=== PATIENT | female | born 1990 | race American Indian/Alaskan Native ===

== ENCOUNTER 2016-05-04 10:29 | Emergency (ER) | payer MEDICAID ==
[2016-05-04 10:51] VITALS: BMI 26.6
[2016-05-04] MEDS ORDERED: cefTRIAXone (Rocephin) 250 mg Inj IM STA (11:37)
--- NOTE | 2016-05-04 11:40 | C.PDOC ---
History Of Present Illness 25 y/o female presents for std evaluation; pt reports light amt white vaginal discharge with funny smell. pt's partner was treated for sti several days ago. pt denies dyspareunia, dysuria, frequency and urgency. denies abdominal pain., n/v. lmp 04/11. Time Seen by Provider: 05/04/16 10:59 Chief Complaint (Nursing): Medical Clearance History Per: Patient History/Exam Limitations: no limitations Past Medical History Reviewed: Historical Data, Nursing Documentation, Vital Signs Vital Signs: Last Vital Signs Temp 97.7 F 05/04/16 10:50 Pulse 75 05/04/16 10:50 Resp 20 05/04/16 10:50 BP 120/70 05/04/16 10:50 Pulse Ox 100 05/04/16 11:43 - Medical History PMH: Gastritis Surgical History: Family History: States: Unknown Family Hx - Social History Hx Alcohol Use: Yes Hx Substance Use: No - Immunization History Hx Tetanus Toxoid Vaccination: No Hx Influenza Vaccination: No Hx Pneumococcal Vaccination: No Review Of Systems Constitutional: Negative for: Fever, Chills Gastrointestinal: Negative for: Nausea, Vomiting, Abdominal Pain Genitourinary: Positive for: Vaginal Discharge. Negative for: Dysuria, Frequency, Incontinence, Pelvic Pain Physical Exam - Physical Exam Appears: Non-toxic, No Acute Distress Skin: Normal Color, Warm, Dry Head: Atraumatic, Normacephalic Neck: Normal ROM Chest: Symmetrical, No Deformity, No Tenderness Cardiovascular: Rhythm Regular, No Murmur Respiratory: Normal Breath Sounds, No Rales, No Rhonchi, No Wheezing Gastrointestinal/Abdominal: Bowel Sounds, Soft, No Tenderness Back: No CVA Tenderness Neurological/Psych: Oriented x3, Normal Speech, Normal Cognition, Normal Motor, Normal Sensation ED Course And Treatment O2 Sat by Pulse Oximetry: 100 Medical Decision Making Medical Decision Makin25 y/o female for sti check; partner treated 2 days ago for sti. will treat pt and pt advised for herself and partner to fully checked for sti before engaging in unprotected sexual relations. Disposition Counseled Patient/Family Regarding: Diagnosis, Need For Followup - Disposition Disposition: HOME/ ROUTINE Disposition Time: 12:34 Condition: GOOD Additional Instructions: Follow up in STD clinic for full STD testing, both yourself and partner. Recommend protected sex until all testing done. - Clinical Impression Clinical Impression: Exposure to sexually transmitted disease (STD)
[2016-05-04] MEDS: cefTRIAXone 250 MG in Lidocaine Hydrochloride 1 ML IM ONE ×2 (12:05→12:25)
[2016-05-04 13:32] VITALS: BP 111/57; PULSE 58; RESP 16; TEMP 98.4; O2SAT 97
== END 2016-05-04 12:45 | disposition home or self-care (01) ==
LOC: C.ER 10:29
DX: Z20.2 Contact with and (suspected) exposure to infections with a predominantly sexual mode of transmission (principal)

== ENCOUNTER 2017-01-02 14:07 | Emergency (ER) | payer MEDICAID ==
[2017-01-02 14:07] VITALS: BMI 26.6
[2017-01-02 14:38] VITALS: RESP 20; TEMP 97.8
--- NOTE | 2017-01-02 15:14 | C.PDOC ---
History Of Present Illness 26 year old female presents to the ER with a complaint of a mildly painful abscess to the right groin for the past 2 days that popped today. Denies fever. Time Seen by Provider: 01/02/17 14:37 Chief Complaint (Nursing): Abnormal Skin Integrity History Per: Patient History/Exam Limitations: no limitations Onset/Duration Of Symptoms: Days Current Symptoms Are (Timing): Still Present Quality Of Symptoms: Painful Recent travel outside of the [place]: No Past Medical History Reviewed: Historical Data, Nursing Documentation, Vital Signs Vital Signs: Last Vital Signs Temp 97.8 F 01/02/17 14:36 Pulse 75 01/02/17 15:32 Resp 20 01/02/17 15:32 BP 100/68 01/02/17 15:32 Pulse Ox 98 01/02/17 15:32 - Medical History PMH: Gastritis Surgical History: Family History: States: Unknown Family Hx - Social History Hx Alcohol Use: Yes Hx Substance Use: No - Immunization History Hx Tetanus Toxoid Vaccination: No Hx Influenza Vaccination: No Hx Pneumococcal Vaccination: No Review Of Systems Except As Marked, All Systems Reviewed And Found Negative. Skin: Positive for: Other (Abscess to right groin) Physical Exam - Physical Exam Appears: Non-toxic, No Acute Distress Skin: Warm, Dry Head: Atraumatic, Normacephalic Oral Mucosa: Moist Chest: Symmetrical, No Tenderness Cardiovascular: Rhythm Regular Respiratory: Normal Breath Sounds, No Rales, No Rhonchi, No Wheezing Pelvic: Other (Small pustule, mildly tender, to right inguinal area next to labia, mild fluctuance. No erythema or vesicular lesions.) Neurological/Psych: Oriented x3, Normal Speech, Normal Cognition ED Course And Treatment O2 Sat by Pulse Oximetry: 100 (Room air) Pulse Ox Interpretation: Normal Progress Note: Motrin administered. Patient instructed to apply warm compress and started on clindamycin. Disposition Counseled Patient/Family Regarding: Diagnosis, Need For Followup, Rx Given - Disposition Referrals: at [facility] [Outside] Disposition: HOME/ ROUTINE Disposition Time: 15:20 Condition: STABLE Additional Instructions: APPLY WARM COMPRESSES TO AREA SEVERAL TIMES DAILY USE ANTIBIOTICS UNTIL FINISHED RETURN TO ER IF SYMPTOMS WORSEN Prescriptions: Clindamycin [Cleocin] 300 mg PO TID #21 cap Ibuprofen [Motrin Tab] 600 mg PO Q6 PRN #30 tab PRN Reason: fever/pain Lactobacillus Combination No.4 [Probiotic] 1 each PO DAILY #7 capsule Instructions: Abscess (ED) Forms: [employer] (Polish) Print Language: UZBEK - POA Present On Arrival: None - Clinical Impression Clinical Impression: Furuncle - Scribe Statement The provider has reviewed the documentation as recorded by the Scribe Dino Donato All medical record entries made by the Scribe were at my direction and personally dictated by me. I have reviewed the chart and agree that the record accurately reflects my personal performance of the history, physical exam, medical decision making, and the department course for this patient. I have also personally directed, reviewed, and agree with the discharge instructions and disposition.
[2017-01-02 15:32] VITALS: BP 100/68; PULSE 75
[2017-01-02 17:13] VITALS: O2SAT 100
== END 2017-01-02 15:33 | disposition home or self-care (01) ==
LOC: C.ER 14:07
DX: L02.224 Furuncle of groin (principal)

== ENCOUNTER 2017-05-28 18:36 | Emergency (ER) | payer MEDICAID ==
[2017-05-28 18:36] VITALS: BMI 26.6
[2017-05-28 19:21] VITALS: RESP 18; TEMP 98.5; O2SAT 100
[2017-05-28] MEDS ORDERED: Sodium Chloride 0.9% 1,000 ML IV ONE (20:07)
--- NOTE | 2017-05-28 20:07 | C.PDOC ---
History Of Present Illness 26 year old female presents to the ED c/o suprapubic pain associated with vaginal bleeding. Patient reports she was seen yesterday at [facility] [place] and her hcG was 700. Patient not reports she is having increased suprapubic pain along with some vaginal spotting. Patient has 2 kids at home, 3 abortions and 1 miscarriage. Patient denies fever, chills, cough, nausea, vomit. Time Seen by Provider: 05/28/17 20:06 Chief Complaint (Nursing): Female Genitourinary History Per: Patient History/Exam Limitations: no limitations Onset/Duration Of Symptoms: Days Current Symptoms Are (Timing): Still Present Quality Of Discomfort: "Pain" Associated Symptoms: Urinary Symptoms Alleviating Factors: None Recent travel outside of the [place]: No Abnormal Vaginal Bleeding: Yes Past Medical History Reviewed: Historical Data, Nursing Documentation, Vital Signs Vital Signs: Last Vital Signs Temp 98.5 F 05/28/17 19:17 Pulse 83 05/28/17 20:33 Resp 18 05/28/17 20:33 BP 124/70 05/28/17 20:33 Pulse Ox 100 05/28/17 20:33 - Medical History PMH: Gastritis Surgical History: Family History: States: Unknown Family Hx - Social History Hx Alcohol Use: Yes Hx Substance Use: No - Immunization History Hx Tetanus Toxoid Vaccination: No Hx Influenza Vaccination: No Hx Pneumococcal Vaccination: No Review Of Systems Constitutional: Negative for: Fever, Chills Respiratory: Negative for: Shortness of Breath Gastrointestinal: Positive for: Abdominal Pain Genitourinary: Positive for: Vaginal Bleeding. Negative for: Dysuria, Hematuria , Vaginal Discharge Musculoskeletal: Negative for: Back Pain Skin: Negative for: Rash Physical Exam - Physical Exam Appears: Non-toxic, No Acute Distress Skin: Warm, Dry Head: Normacephalic Eye(s): bilateral: Normal Inspection Nose: No Discharge Oral Mucosa: Moist Neck: Supple Chest: Symmetrical Cardiovascular: Rhythm Regular, No Murmur Respiratory: No Rales, No Rhonchi, No Wheezing Gastrointestinal/Abdominal: Soft, Tenderness (suprapubic), No Guarding, No Rebound Extremity: Normal ROM, No Tenderness, No Swelling Neurological/Psych: Oriented x3 Gait: Steady ED Course And Treatment - Laboratory Results Result Diagrams: 05/28/17 20:17 05/28/17 20:17 O2 Sat by Pulse Oximetry: 100 (ON RA) Pulse Ox Interpretation: Normal Progress Note: Plan: - Labs. - Morphine 4 mg IVP. - Pepcid 20 mg IVP. - IV fluids. - Zofran 4 mg IVP. - UA. - Transvaginal US Reevaluation Time: 22:47 Reassessment Condition: Improved Disposition Counseled Patient/Family Regarding: Studies Performed, Diagnosis, Need For Followup - Disposition Referrals: [facility] [Outside] [facility] [Outside] Disposition: HOME/ ROUTINE Disposition Time: 20:07 Condition: FAIR Additional Instructions: Please return if symptoms recur Prescriptions: traMADol [Ultram] 50 mg PO TID PRN #15 tab PRN Reason: Pain, Severe (8-10) Instructions: Miscarriage (DC) Forms: [employer] (Danish) - Clinical Impression Clinical Impression: Miscarriage - Scribe Statement The provider has reviewed the documentation as recorded by the Scribe Ramakrishna Driscoll All medical record entries made by the Scribe were at my direction and personally dictated by me. I have reviewed the chart and agree that the record accurately reflects my personal performance of the history, physical exam, medical decision making, and the department course for this patient. I have also personally directed, reviewed, and agree with the discharge instructions and disposition.
[2017-05-28] MEDS ORDERED: Morphine 4 MG/ML VIAL ONE ×2 (20:14→22:35)
[2017-05-28] MEDS ORDERED: Sodium Chloride 0.9% 1,000 ML ONE (20:14)
[2017-05-28 20:23] LABS: BASO # 0.1 K/uL (0.0-0.2); BASO % 0.8 % (0.0-2.0); EOS # 0.2 K/uL (0.0-0.7); EOS % 1.9 % (0.0-4.0); HEMOGLOBIN 11.2 g/dL (11.0-16.0); LYMPH # 2.8 K/uL (1.0-4.3); LYMPH % 36.3 % (20.0-40.0); MEAN CELL VOLUME 83.8 fL (81.0-99.0); MEAN CORPUSCULAR HEMOGLOBIN 27.1 pg (27.0-31.0); MEAN CORPUSCULAR HGB CONC 32.4 g/dL (33.0-37.0); MEAN PLATELET VOLUME 7.9 fL (7.2-11.7); MONO # 0.7 K/uL (0.0-0.8); MONO % 9.1 % (0.0-10.0); NEUT % 51.9 % (50.0-75.0); NRBC % 0.1 % (0.0-2.0); RBC 4.14 Mil/uL (3.80-5.20); RED CELL DISTRIBUTION WIDTH 13.2 % (11.5-14.5); WHITE BLOOD COUNT 7.8 K/uL (4.8-10.8)
[2017-05-28 20:34] VITALS: BP 124/70; PULSE 83
[2017-05-28 20:40] LABS: SQUAMOUS EPITHIAL 1 /hpf (0-5); URINE BILIRUBIN NEGATIVE (NEGATIVE); URINE BLOOD 3+ (NEGATIVE); URINE CLARITY Clear (Clear); URINE COLOR Yellow (YELLOW); URINE GLUCOSE (UA) NORMAL (Normal); URINE LEUKOCYTE ESTERASE NEG Leu/uL (Negative); URINE PROTEIN NEGATIVE (NEGATIVE)
[2017-05-28 20:41] LABS: ALBUMIN 3.7 g/dL (3.5-5.0); CALCIUM 8.6 mg/dl (8.6-10.4); GFR AFRICAN-AMERICAN > 60; GFR NON-AFRICAN AMERICAN > 60
[2017-05-28 20:44] LABS: ALT/SGPT 10 U/L (9-52); AST/SGOT 35 U/L (14-36); BLOOD UREA NITROGEN 14 mg/dL (7-17)
--- NOTE | 2017-05-29 00:02 | US ---
HISTORY: vag bleed, pain, 6 weeks preg hcg 750 COMPARISON: None available. TECHNIQUE: Transabdominal and endovaginal ultrasound examination of the pelvis FINDINGS: UTERUS: Measures 10.7 x 6.1 x 6.7 cm. Normal in size and appearance. No fibroid or other mass lesion seen. ENDOMETRIUM: Measures 6 mm in diameter. Unremarkable. CERVIX: No cervical abnormality identified. The cervix measures 3.8 centimeter RIGHT OVARY: Measures 3.3 x 1.9 x 3.1 cm. No solid mass. Normal flow. LEFT OVARY: Measures 2.7 x 2.2 x 2.13 cm. No solid mass. Normal flow. FREE FLUID: No significant free fluid noted. OTHER FINDINGS: None. IMPRESSION: No evidence of intrauterine . No definite ultrasound evidence of ectopic . No ultrasound evidence of acute pathology in the ovaries. Correlation with beta HCG level and follow-up study if clinically warranted.
== END 2017-05-28 23:31 | disposition home or self-care (01) ==
LOC: SUPCPDRO 18:36 → C.ER 18:36
DX: O03.9 Complete or unspecified spontaneous abortion without complication (principal)
CPT/HCPCS: 76830; 80053; 81001; 84702; 85025; 86850; 86900; 96361; 96374; 96375; 96376; 99284; J2270; J2405; J7040

== ENCOUNTER 2017-08-16 17:02 | Emergency (ER) | payer MEDICAID ==
[2017-08-16 17:02] VITALS: BMI 26.6
[2017-08-16 17:10] VITALS: BP 119/69; PULSE 77; RESP 17; TEMP 98.8; O2SAT 99
--- NOTE | 2017-08-16 17:28 | C.PDOC ---
History Of Present Illness Patient presents to ED c/o swollen upper lip since this morning. Patient admits to shellfish allergy, did not eat anything unusual today, but did eat steak yesterday from restaurant. She denies tongue swelling, sensation of throat closing up, rash, itching, SOB, wheezing. Patient took two tabs of Benadryl at approx 12:40pm. Time Seen by Provider: 08/16/17 17:13 Chief Complaint (Nursing): Allergic Reaction History Per: Patient History/Exam Limitations: no limitations Onset/Duration Of Symptoms: Hrs Current Symptoms Are (Timing): Still Present Home/EMS Treatment: Benadryl (2 tabs) Severity: Moderate Past Medical History Reviewed: Historical Data, Nursing Documentation, Vital Signs Vital Signs: Last Vital Signs Temp 98.8 F 08/16/17 17:06 Pulse 77 08/16/17 17:06 Resp 17 08/16/17 17:06 BP 119/69 08/16/17 17:06 Pulse Ox 99 08/16/17 18:25 - Medical History PMH: Gastritis Surgical History: Family History: States: No Known Family Hx Other Family History: denies history of angioedema in family - Social History Hx Alcohol Use: Yes Hx Substance Use: No - Immunization History Hx Tetanus Toxoid Vaccination: No Hx Influenza Vaccination: No Hx Pneumococcal Vaccination: No Review Of Systems Constitutional: Negative for: Fever, Chills ENT: Positive for: Mouth Swelling, Other (upper lip swelling ). Negative for: Nose Discharge, Nose Congestion, Throat Swelling Cardiovascular: Negative for: Chest Pain Respiratory: Negative for: Cough, Shortness of Breath Skin: Negative for: Rash Physical Exam - Physical Exam Appears: Well, Non-toxic, No Acute Distress, Other (speaking in full sentences) Skin: Warm, Dry, Other (upper lip mildly swollen, no fluctuance/induration, no lesions) Nose: Normal Oral Mucosa: Moist, No Drooling Tongue: Normal Appearing, No Swelling, No Lesions Lips: Normal Appearing, Swelling (mild, upper lip), No Lesions Throat: Normal, No Erythema, No Exudate, No Drooling Cardiovascular: Rhythm Regular Respiratory: Normal Breath Sounds, No Rales, No Rhonchi, No Wheezing Neurological/Psych: Oriented x3 ED Course And Treatment O2 Sat by Pulse Oximetry: 99 (RA) Pulse Ox Interpretation: Normal Progress Note: Patient given PO Prednisone and PO Pepcid (benadryl already taken at home). Reevaluation Time: 18:30 Reassessment Condition: Improved (On reassessment, patient is resting comfortably, in no respiratory distress. She has no intraoral swelling, drooling/stridor, SOB. Vitals WNL. Patient discharged home with Rx for prednisone. She was instructed to follow up with PMD/clinic in 1-2 days, and understands she should return to ED immediately if symptoms worsen.) Disposition Counseled Patient/Family Regarding: Diagnosis, Need For Followup, Rx Given - Disposition Referrals: Loren Gallo [Staff Provider] - Disposition: HOME/ ROUTINE Disposition Time: 18:30 Condition: STABLE Additional Instructions: FOLLOW UP WITH YOUR DOCTOR IN 1-2 DAYS USE MEDICATION UNTIL FINISHED, USE BENADRYL IF YOU HAVE ITCHING RETURN TO EMERGENCY ROOM IMMEDIATELY IF SYMPTOMS WORSEN Prescriptions: predniSONE [predniSONE Tab] 40 mg PO DAILY #8 tab Forms: [employer] (French), General Discharge Instructions Print Language: YORUBA - Clinical Impression Clinical Impression: Allergic reaction, Swollen upper lip
== END 2017-08-16 18:33 | disposition home or self-care (01) ==
LOC: C.ER 17:02
DX: T78.40XA Allergy, unspecified, initial encounter (principal); K13.0 Diseases of lips

== ENCOUNTER 2017-09-13 00:56 | Emergency (ER) | payer MEDICAID ==
[2017-09-13 00:56] VITALS: BMI 26.6
[2017-09-13 01:22] VITALS: RESP 18; TEMP 98.2; O2SAT 99
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
[2017-09-13 03:03] VITALS: BP 108/68; PULSE 78
== END 2017-09-13 02:50 | disposition home or self-care (01) ==
LOC: SUPCPDRO 00:56 → C.ER 00:56
DX: R22.0 Localized swelling, mass and lump, head (principal)